=== PATIENT | male | born 1960 | race Two or more races ===

== ENCOUNTER → 2018-03-15 | Emergency (ER) | payer OTHER ==
[~2018-03-15] VITALS: Ht 175.3 cm; Wt 66.2 kg
[~2018-03-15] MED LIST: DIOVAN40 MG; IBUPROFEN800 MG PO; JANUMET 50-5001 EACH
== END | disposition left against medical advice (07) ==
LOC: ER 02:00
DX: Z53.20 Procedure and treatment not carried out because of patient's decision for unspecified reasons (principal)

== ENCOUNTER 2018-06-19 12:20 | Inpatient (IN) | payer OTHER ==
[~2018-06-19] VITALS: Ht 175.3 cm; Wt 65.8 kg
[2018-06-19] MEDS ORDERED: VALSARTAN80 MG (12:34)
[2018-06-19] MEDS ORDERED: XIGDUO XR 5 MG1 EAC1 (12:35)
[2018-06-24] MEDS ORDERED: Lantus 1000 UNITS/10 SUBCUTANEO (17:55)
== END 2018-06-24 19:19 | disposition home or self-care (01) | DRG 639 ==
LOC: ER 12:20 → ICU-2 06-20 13:45 → SURH 06-20 13:45
PROC: BW25YZZ Computerized Tomography (CT Scan) of Chest, Abdomen and Pelvis using Other Contrast (ICD-10-PCS; principal; 2018-06-23)
DX: E11.10 Type 2 diabetes mellitus with ketoacidosis without coma (principal); E86.0 Dehydration; I10 Essential (primary) hypertension

== ENCOUNTER 2019-07-24 01:41 | Emergency (ER) | payer OTHER ==
[~2019-07-24] VITALS: Ht 175.3 cm; Wt 81.6 kg
[~2019-07-24 01:41] MED LIST changes: +Lantus 1000 UNITS/10 SUBCUTANEO; +VALSARTAN80 MG; +XIGDUO XR 5 MG1 EAC1
== END 2019-07-24 03:22 ==
LOC: ER 01:41
DX: E13.69 Other specified diabetes mellitus with other specified complication (principal); R11.0 Nausea

== ENCOUNTER 2019-08-06 10:18 | Emergency (ER) | payer OTHER ==
[~2019-08-06] VITALS: Ht 175.3 cm; Wt 81.6 kg
== END 2019-08-06 13:36 | disposition home or self-care (01) ==
LOC: ER 10:18
DX: R42 Dizziness and giddiness (principal); R51 Headache

== ENCOUNTER → 2019-08-31 | Emergency (ER) | payer OTHER | END | disposition left against medical advice (07) | LOC: ER 05:32 | DX: Z53.20 Procedure and treatment not carried out because of patient's decision for unspecified reasons (principal) ==

== ENCOUNTER → 2019-09-26 | Emergency (ER) | payer OTHER ==
[~2019-09-26] VITALS: Ht 175.3 cm; Wt 82.6 kg
[~2019-09-26] MED LIST changes: +APIDRA100 UNIT/1; +COZAAR25 MG
== END | disposition left against medical advice (07) ==
LOC: ER 16:50
DX: Z53.20 Procedure and treatment not carried out because of patient's decision for unspecified reasons (principal)

== ENCOUNTER 2019-12-05 23:09 | Emergency (ER) | payer OTHER ==
[~2019-12-05] VITALS: Ht 175.3 cm; Wt 81.6 kg
== END 2019-12-06 00:54 | disposition home or self-care (01) ==
LOC: ER 23:09
DX: E11.65 Type 2 diabetes mellitus with hyperglycemia (principal)

== ENCOUNTER → 2020-01-08 | Emergency (ER) | payer OTHER ==
[~2020-01-08] VITALS: Ht 175.3 cm; Wt 81.6 kg
== END | disposition left against medical advice (07) ==
LOC: ER 02:05
DX: Z53.20 Procedure and treatment not carried out because of patient's decision for unspecified reasons (principal)

== ENCOUNTER 2020-06-18 11:32 | Emergency (ER) | payer OTHER ==
[~2020-06-18] VITALS: Ht 175.3 cm; Wt 83.9 kg
== END 2020-06-18 16:04 | disposition home or self-care (01) ==
LOC: ER 11:32
DX: E09.649 Drug or chemical induced diabetes mellitus with hypoglycemia without coma (principal); T38.3X6A Underdosing of insulin and oral hypoglycemic [antidiabetic] drugs, initial encounter; Y92.098 Other place in other non-institutional residence as the place of occurrence of the external cause
CPT/HCPCS: 93005; G0378; G0379

== ENCOUNTER → 2020-09-12 | Emergency (ER) | payer OTHER ==
[~2020-09-12] VITALS: Ht 175.3 cm; Wt 83.5 kg
== END | disposition left against medical advice (07) ==
LOC: ER 06:20
DX: Z53.20 Procedure and treatment not carried out because of patient's decision for unspecified reasons (principal)

== ENCOUNTER 2021-02-07 08:03 | Emergency (ER) | payer OTHER ==
[~2021-02-07] VITALS: Ht 175.3 cm; Wt 84.4 kg
[2021-02-07] MEDS ORDERED: LOSARTAN POTASS50 MG PO (09:03)
[2021-02-07] MEDS ORDERED: HYDROCHLOROTH12.5 MG PO (09:03)
== END 2021-02-07 09:16 | disposition home or self-care (01) ==
LOC: ER 08:03
DX: I16.1 Hypertensive emergency (principal); I10 Essential (primary) hypertension

== ENCOUNTER 2021-02-13 10:11 | Outpatient (CLI) | payer OTHER ==
[~2021-02-13 10:11] MED LIST changes: +HYDROCHLOROTH12.5 MG PO; +LOSARTAN POTASS50 MG PO
== END 2021-02-13 10:25 | disposition home or self-care (01) ==
LOC: RAD 10:11
DX: I10 Essential (primary) hypertension (principal)

== ENCOUNTER → 2021-03-11 | Emergency (ER) | payer OTHER ==
[~2021-03-11] VITALS: Ht 175.3 cm; Wt 83.9 kg
[~2021-03-11] MED LIST changes: +OFLOXACIN5 ML OP; +PREDNISOLONE ACE5 ML OP
== END | disposition left against medical advice (07) ==
LOC: ER 15:48
DX: F06.4 Anxiety disorder due to known physiological condition (principal)

== ENCOUNTER 2021-04-03 00:15 | Emergency (ER) | payer OTHER ==
[~2021-04-03] VITALS: Ht 175.3 cm; Wt 84.4 kg
== END 2021-04-03 01:51 | disposition home or self-care (01) ==
LOC: ER 00:15
DX: E11.649 Type 2 diabetes mellitus with hypoglycemia without coma (principal)

== ENCOUNTER 2021-04-21 13:13 | Emergency (ER) | payer OTHER ==
[~2021-04-21] VITALS: Ht 175.3 cm; Wt 84.8 kg
== END 2021-04-21 16:32 | disposition home or self-care (01) ==
LOC: ER 13:13
DX: R42 Dizziness and giddiness (principal); E11.9 Type 2 diabetes mellitus without complications

== ENCOUNTER 2021-08-27 09:47 | Emergency (ER) | payer OTHER ==
[~2021-08-27] VITALS: Ht 175.3 cm; Wt 83.5 kg
== END 2021-08-27 16:02 | disposition home or self-care (01) ==
LOC: ER 09:47
DX: R51.9 Headache, unspecified (principal)

== ENCOUNTER 2022-11-15 07:49 | Emergency (ER) | payer OTHER ==
[~2022-11-15] VITALS: Ht 175.3 cm; Wt 80.7 kg
== END 2022-11-15 09:50 | disposition home or self-care (01) ==
LOC: ER 07:49
DX: I10 Essential (primary) hypertension (principal); R53.81 Other malaise

== ENCOUNTER → 2023-05-03 | Emergency (ER) | payer OTHER | END | disposition left against medical advice (07) | LOC: ER 03:41 | DX: Z53.21 Procedure and treatment not carried out due to patient leaving prior to being seen by health care provider (principal) ==

== ENCOUNTER → 2023-07-17 | Emergency (ER) | payer OTHER ==
[~2023-07-17] VITALS: Ht 175.3 cm; Wt 83.5 kg
== END | disposition left against medical advice (07) ==
LOC: ER 01:31
DX: Z53.21 Procedure and treatment not carried out due to patient leaving prior to being seen by health care provider (principal)

== ENCOUNTER 2023-09-24 03:24 | Emergency (ER) | payer OTHER ==
[~2023-09-24] VITALS: Ht 175.3 cm; Wt 83.5 kg
== END 2023-09-24 06:42 | disposition home or self-care (01) ==
LOC: ER 03:25
DX: J06.9 Acute upper respiratory infection, unspecified (principal)

== ENCOUNTER → 2023-10-17 | Emergency (ER) | payer OTHER ==
[~2023-10-17] VITALS: Ht 175.3 cm; Wt 82.6 kg
[~2023-10-17] MED LIST changes: +GLUMETZA500 MG PO
[2023-10-17 20:17] LABS: HEMATOCRIT 44.5 % (39.0-48.0); HEMOGLOBIN 14.8 g/dL (13-16.00); MEAN CELL VOLUME 86.3 fL (80.0-100.00); MEAN CORPUSCULAR HEMOGLOBIN 28.7 pg (27.00-32.0); MEAN CORPUSCULAR HGB CONC 33.3 g/dl (32.0-36.0); PLATELET COUNT 183 K/uL (150-450); RED BLOOD COUNT 5.15 M/uL (4.00-6.00); RED CELL DISTRIBUTION WIDTH 13.1 % (11.5-14.5)
[2023-10-17 20:45] LABS: CALCIUM 9.3 mg/dL (8.5-10.1); CREATININE SERUM 1.45 mg/dL (0.70-1.30); POTASSIUM 4.32 mEq/L (3.5-5.1)
== END | disposition home or self-care (01) ==
LOC: ER 18:41
PROVIDERS: General Practice
DX: R00.2 Palpitations (principal)

== ENCOUNTER 2024-06-09 15:04 | Emergency (ER) | payer OTHER ==
[~2024-06-09] VITALS: Ht 175.3 cm; Wt 86.2 kg
== END 2024-06-09 16:02 | disposition left against medical advice (07) ==
LOC: ER 15:05
DX: Z53.21 Procedure and treatment not carried out due to patient leaving prior to being seen by health care provider (principal)

== ENCOUNTER 2024-06-14 23:47 | Emergency (ER) | payer OTHER ==
[~2024-06-14] VITALS: Ht 175.3 cm; Wt 87.1 kg
[2024-06-15] MEDS ORDERED: KETOROLAC TROMETHAMINE 30 MG VIAL IV STA (01:26)
[2024-06-15] MEDS ORDERED: 0.9 % SODIUM CHLORIDE 1,000 ML IV ONE (01:30)
[2024-06-15] MEDS ORDERED: KETOROLAC TROMETHAMINE 30 MG VIAL ONE (01:41)
[2024-06-15] MEDS ORDERED: BARIUM SULFATE 450 ML ORAL.SUSP PO ONE (01:42)
[2024-06-15 02:32] LABS: HEMATOCRIT 43.8 % (39.0-48.0); HEMOGLOBIN 14.8 g/dL (13-16.00); MEAN CELL VOLUME 85.1 fL (80.0-100.00); MEAN CORPUSCULAR HEMOGLOBIN 28.6 pg (27.00-32.0); MEAN CORPUSCULAR HGB CONC 33.7 g/dl (32.0-36.0); PLATELET COUNT 212 K/uL (150-450); RED BLOOD COUNT 5.15 M/uL (4.00-6.00); RED CELL DISTRIBUTION WIDTH 12.6 % (11.5-14.5)
[2024-06-15 02:48] LABS: INR 1.08; PARTIAL THROMBOPLASTIN TIME 29.2 SECONDS (22.0-34.0); PROTHROMBIN TIME 11.3 SECONDS (9.0-11.5)
[2024-06-15 02:52] LABS: ALBUMIN 3.4 gm/dL (3.4-5.0); BILIRUBIN TOTAL 0.66 mg/dL (0.3-1.2); BILIRUBIN,CONJUGATED 0.13 mg/dL (0.0-0.2); BILIRUBIN,UNCONJUGATED 0.53 mg/dL (0.0-0.6); CALCIUM 9.4 mg/dL (8.5-10.1); CREATININE SERUM 0.85 mg/dL (0.70-1.30); GFR 90.46; GLOBULINA 4.1 G/DL (2.4-3.5); POTASSIUM 3.86 mEq/L (3.5-5.1); TOTAL PROTEIN 7.5 gm/dL (6.4-8.2)
[2024-06-15 03:14] LABS: PH,URINE 7.5 (5.0-8.0); URINE APPEARANCE Clear; URINE BILIRRUBIN Negative (NEGATIVE); URINE BLOOD Negative; URINE COLOR Yellow; URINE LEUKOCYTE Negative; URINE NITRATE Negative; URINE PROTEIN Negative (NEGATIVE); URINE UROBILINOGEN 0.2 E.U./dl
[2024-06-15 03:18] LABS: URINE EPITHELIAL CELLS 1.5 uL (0.0-38.8); URINE WBC 1.8 uL (0.0-23.2)
[2024-06-15 03:37] LABS: URINE BACTERIA 1.2 uL (0.0-1933); URINE GLUCOSE 250 MG/DL (NEGATIVE); URINE RBC 0.1 uL (0.0-20.8)
== END 2024-06-15 09:54 | disposition home or self-care (01) ==
LOC: ER 23:47
PROVIDERS: General Practice
DX: K59.00 Constipation, unspecified (principal); K42.9 Umbilical hernia without obstruction or gangrene; I10 Essential (primary) hypertension

== ENCOUNTER → 2024-11-28 | Emergency (ER) | payer OTHER ==
[~2024-11-28] VITALS: Ht 175.3 cm; Wt 87.1 kg
[~2024-11-28] MED LIST changes: +ACETAMINOPHEN 120 MG SUPP.RECT RECTAL ONE; +KETOROLAC TROMETHAMINE 60 MG VIAL IM ONE
== END | disposition left against medical advice (07) ==
LOC: ER 01:42
DX: Z53.21 Procedure and treatment not carried out due to patient leaving prior to being seen by health care provider (principal)